=== PATIENT | female | born 1990 | race Caucasian/White ===

== ENCOUNTER 2016-12-12 10:40 | Emergency (ER) | payer BC, OTHER ==
[2016-12-12 11:24] VITALS: BP 118/70
[2016-12-12] MEDS ORDERED: Ibuprofen TAB* 400 MG PO ONE (13:04)
--- NOTE | 2016-12-12 13:08 | UC ---
Throat Pain/Nasal Aurea HPI - History of Current Complaint Chief Complaint: UCRespiratory Stated Complaint: THROAT PAIN Time Seen by Provider: 12/12/16 12:33 Hx Obtained From: Patient Hx Last Menstrual Period: 11/26/16 ?: No Onset/Duration: Gradual Onset - started 4 days a go with ST and nasal aurea. today has fever and feels "awful" Cough: None Associated Signs & Symptoms: Positive: Sinus Discomfort, Fever - Allergies/Home Medications Allergies/Adverse Reactions: Allergies Allergy/AdvReac Type Severity Reaction Status Date / Time No Known Allergies Allergy Verified 11/20/15 18:40 Home Medications: Home Medications Ibuprofen [Advil] 400 mg PO 12/12/16 [History] PMH/Surg Hx/FS Hx/Imm Hx Previously Healthy: Yes - Surgical History Surgical History: Yes Surgery Procedure, Year, and Place: Ganglion cyst removed in September, wisdom teeth extraction - Family History Known Family History: Positive: None - Social History Occupation: Employed Full-time - customer service Lives: With Family Alcohol Use: Rare Substance Use Type: None Smoking Status (MU): Never Smoked Tobacco Review of Systems Constitutional: Fever, Fatigue Skin: Negative ENT: Sore Throat, Sinus Congestion, Other - ear fullness Respiratory: Negative Cardiovascular: Negative Neurological: Negative Psychological: Negative All Other Systems Reviewed And Are Negative: Yes Physical Exam Triage Information Reviewed: Yes Appearance: Well-Appearing, No Pain Distress, Well-Nourished Vital Signs: Initial Vital Signs Temp 100.7 F 12/12/16 11:20 Pulse 120 12/12/16 11:20 Resp 18 12/12/16 11:20 BP 118/70 12/12/16 11:20 Pulse Ox 99 12/12/16 11:20 Vital Signs Reviewed: Yes Eyes: Positive: Conjunctiva Clear ENT: Positive: Pharyngeal erythema, TM dull, Tonsillar swelling, Tonsillar exudate Neck: Positive: Enlarged Nodes @ - bilat ant cervical Respiratory Exam: Normal Cardiovascular Exam: Normal Neurological Exam: Normal Psychological Exam: Normal Skin Exam: Normal Skin: Negative: rashes Throat Pain/Nasal Course/Dx - Differential Dx/Diagnosis Differential Diagnosis/HQI/PQRI: Pharyngitis, Sinusitis, Tonsillitis, URI Provider Diagnoses: sinusitis Discharge - Discharge Plan Condition: Good Disposition: HOME Prescriptions: Amoxicillin/Clavulanate TAB* [Augmentin TAB 875*] 875 mg PO BID #20 tab Patient Education Materials: Sinusitis (ED) Referrals: Lali Benson MD [Primary Care Provider] - 3 Days (if no better) Additional Instructions: drink plenty of fluids start antibiotic as prescribed try sudafed (from behind the counter) for nasal congestion
== END 2016-12-12 14:20 | disposition home or self-care (01) ==
LOC: UCEAST 10:40
DX: J32.9 Chronic sinusitis, unspecified (principal)
CPT/HCPCS: 87651; 99212; A9270-GY; G0463

== ENCOUNTER → 2019-04-27 11:07 | Day surgery (SDC) | payer BC ==
[~2019-04-27 11:07] MED LIST: Acetaminophen IV 1GM/100ML * 100 ML ONE; Buffered Lidocaine 1% SYRIN* 1 ML/SYRINGE INTRADERM ONE; DOXYcycline IV 200 MG in NS 250 mL *Pre-Op OBGYN IVPB ONE; Dexamethasone TAB* 4 MG ONE; Dexamethasone TAB* 4 MG PO ONE; DiMENhydriNATE IV* 50 MG/ML VIAL IV PUSH PRN; Famotidine TAB* 20 MG ONE; Famotidine TAB* 20 MG PO ONE; HYDROmorphone INJ1* 1 MG/ML SYRINGE IV PRN; KETAMINE HCL* 50 MG/ML 10 ML VIAL ONE; Ketorolac INJ* 30 MG/ML 1 ML VIAL ONE; Lactated Ringers 1000 ML Bag* 1,000 ML IV SCH; Lidocaine 1% INJ* 10 MG/ML 30 ML SDV ONE; Lidocaine 2% PF * 5 ML VIAL ONE; Midazolam* 1 MG/ML 5 ML VIAL (5 MG) ONE; Misoprostol TAB* 200 MCG ONE; Naloxone* 0.4 MG/ML 1 ML VIAL IV PRN; Ondansetron ODT TAB* 4 MG ONE; Ondansetron ODT TAB* 4 MG PO ONE; PROCHLORPERAZINE INJ 5 MG/ML 2 ML VIAL IV PRN; PROCHLORPERAZINE INJ 5 MG/ML 2 ML VIAL ONE; Propofol* 10 MG/ML 20 ML BTL ONE; Propofol* 500 MG/50 ML BTL ONE; Scopolamine 1.5 mg* PATCH ONE; Scopolamine 1.5 mg* PATCH TRANSDERM PRN; Scopolamine PATCH Remove* 1 NOTE MISC PATCH OFF ONE; Silver Nitrate/Potassium Nitr* 1 PAK (1 PAK PER PATIENT) ONE; fentaNYL* 50 MCG/ML 2 ML VIAL (100 MCG VIAL) IV PRN; fentaNYL* 50 MCG/ML 2 ML VIAL (100 MCG VIAL) ONE; oxyCODONE TAB* 5 MG TAB PO PRN
[2019-04-27 11:57] LABS: ABS Eosinophils 0.1 10^3/ul (0-0.6); ABS Lymphocytes 1.3 10^3/ul (1.0-4.8); ABS Monocytes 0.4 10^3/ul (0-0.8); ABS Neutrophils 5.6 10^3/ul (1.5-7.7); Eosinophil % 1.3 %; Hematocrit 41 % (35-47); Hemoglobin 14.1 g/dL (12.0-16.0); Lymphocyte % 17.4 %; Mean Corpuscular HGB Conc 34 g/dL (31-36); Mean Corpuscular Hemoglobin 31 pg (27-31); Mean Corpuscular Volume 89 fL (80-97); Mean Platelet Volume 7.9 fL (7.4-10.4); Nucleated Red Blood Cells % 0.2; Platelet Count 268 10^3/uL (150-450); Red Cell Distribution Width 13 % (10-15); White Blood Count 7.5 10^3/uL (3.5-10.8)
[2019-04-27 14:47] VITALS: BP 118/77
--- NOTE | 2019-04-27 20:39 | OP ---
OPERATIVE REPORT: DATE OF OPERATION: 04/27/19 DATE OF : [birth year] SURGEON: Jatinder Abreu DO. ANESTHESIA: General endotracheal. PRE-OP DIAGNOSIS: Missed measuring 9 weeks 2 days gestation. POST-OP DIAGNOSIS: Missed measuring 9 weeks 2 days gestation. OPERATIVE PROCEDURE: Suction D and C. IV FLUIDS: 1100 mL IV fluids administered. ESTIMATED BLOOD LOSS: 10 mL. URINE OUTPUT: Zero. SPECIMEN: Products of conception. COMPLICATIONS: No complications. FINDINGS: A 9-week sized anteverted uterus with closed cervix, moderate amounts of products of conception. CONDITION: Stable to recovery room at end of procedure. INDICATIONS: The risks, benefits, alternatives, and indications of the procedures were discussed with the patient. She voiced an understanding of the procedure and signed the consent. DESCRIPTION OF PROCEDURE: The patient was taken to the OR where general anesthesia was administered without difficulty. She was placed in the dorsal lithotomy position with Yellowfin stirrups. An exam under anesthesia revealed a 9-week sized anteverted uterus with the cervix closed. The patient was prepared and draped in the normal sterile fashion. A weighted speculum was inserted in the posterior aspect of the vagina. A single-tooth tenaculum was used to grasp the anterior lip of the cervix. 5 cc of lidocaine was administered at 4 o'clock and 8 o'clock for paracervical blockade. The uterus was then carefully dilated with Hanks dilators to accommodate a size 8 mm suction curette. The size 8 mm suction curette was advanced to the uterine fundus. The suction was then started. The products of conception were evacuated with the curette rotating on the outward movement. This was performed x3. A gentle sharp curettage was then performed with a medium size curette. The suction curette was then reintroduced and 1 additional passage was performed to clear the uterus. The tenaculum was then removed from the cervix and good hemostasis was noted. The patient tolerated the procedure well. The instrument and sponge counts were correct x2. The patient was awakened from general anesthesia and taken to the recovery room in a stable condition. The patient will go home after recovering from anesthesia and meeting all the criteria for discharge. She was given instructions regarding the followup within 2 weeks with [facility]. I was present for the entire procedure. Braulio Abreu DO OBGYN [id number]/[facility] #: [id number] DEANNAD
== END | disposition home or self-care (01) ==
LOC: OR 11:07
PROVIDERS: ATTEND Obstetrics & Gynecology
DX: O02.1 Missed abortion (principal)
CPT/HCPCS: 36415; 85025; 86850; 86900; 86901; 88305; A9270-GY; J0780; J1885; J2250; J2704; J3010; J8540

== ENCOUNTER 2019-08-31 11:58 | Day surgery (SDC) | payer BC ==
[~2019-08-31 11:58] MED LIST changes: -Acetaminophen IV 1GM/100ML * 100 ML ONE; +Dexamethasone IV* 4 MG/ML 1 ML (4 MG) IV SLOW PU ONE; -Dexamethasone TAB* 4 MG ONE; -Dexamethasone TAB* 4 MG PO ONE; -DiMENhydriNATE IV* 50 MG/ML VIAL IV PUSH PRN; +Famotidine IV* 10 MG/ML 2 ML (20 mg) IV ONE; -Famotidine TAB* 20 MG ONE; -Famotidine TAB* 20 MG PO ONE; -HYDROmorphone INJ1* 1 MG/ML SYRINGE IV PRN; -KETAMINE HCL* 50 MG/ML 10 ML VIAL ONE; -Ketorolac INJ* 30 MG/ML 1 ML VIAL ONE; -Lidocaine 1% INJ* 10 MG/ML 30 ML SDV ONE; -Lidocaine 2% PF * 5 ML VIAL ONE; -Midazolam* 1 MG/ML 5 ML VIAL (5 MG) ONE; -Misoprostol TAB* 200 MCG ONE; -Naloxone* 0.4 MG/ML 1 ML VIAL IV PRN; -Ondansetron ODT TAB* 4 MG ONE; -Ondansetron ODT TAB* 4 MG PO ONE; -PROCHLORPERAZINE INJ 5 MG/ML 2 ML VIAL IV PRN; -PROCHLORPERAZINE INJ 5 MG/ML 2 ML VIAL ONE; -Propofol* 10 MG/ML 20 ML BTL ONE; -Propofol* 500 MG/50 ML BTL ONE; -Scopolamine 1.5 mg* PATCH ONE; -Scopolamine 1.5 mg* PATCH TRANSDERM PRN; -Scopolamine PATCH Remove* 1 NOTE MISC PATCH OFF ONE; -Silver Nitrate/Potassium Nitr* 1 PAK (1 PAK PER PATIENT) ONE; -fentaNYL* 50 MCG/ML 2 ML VIAL (100 MCG VIAL) IV PRN; -fentaNYL* 50 MCG/ML 2 ML VIAL (100 MCG VIAL) ONE; -oxyCODONE TAB* 5 MG TAB PO PRN
[2019-08-31] MEDS ORDERED: Dexamethasone IV* 4 MG/ML 1 ML (4 MG) ONE ×2 (12:12→14:30)
[2019-08-31] MEDS ORDERED: Buffered Lidocaine 1% SYRIN* 1 ML/SYRINGE INTRADERM ONE (12:12)
[2019-08-31] MEDS ORDERED: Famotidine IV* 10 MG/ML 2 ML (20 mg) ONE (12:13)
[2019-08-31 13:16] LABS: ABS Eosinophils 0.1 10^3/ul (0-0.6); ABS Lymphocytes 1.2 10^3/ul (1.0-4.8); ABS Monocytes 0.4 10^3/ul (0-0.8); ABS Neutrophils 5.8 10^3/ul (1.5-7.7); Eosinophil % 1.5 %; Hematocrit 41 % (35-47); Hemoglobin 14.2 g/dL (12.0-16.0); Lymphocyte % 15.5 %; Mean Corpuscular HGB Conc 35 g/dL (31-36); Mean Corpuscular Hemoglobin 31 pg (27-31); Mean Corpuscular Volume 88 fL (80-97); Mean Platelet Volume 8.4 fL (7.4-10.4); Nucleated Red Blood Cells % 0.1; Platelet Count 249 10^3/uL (150-450); Red Blood Count 4.61 10^6 /uL (3.70-4.87); Red Cell Distribution Width 13 % (10-15); White Blood Count 7.5 10^3/uL (3.5-10.8)
[2019-08-31] MEDS ORDERED: Lidocaine 1% INJ* 10 MG/ML 30 ML SDV ONE (14:06)
[2019-08-31] MEDS ORDERED: Scopolamine 1.5 mg* PATCH ONE (14:12)
[2019-08-31] MEDS ORDERED: Midazolam* 1 MG/ML 5 ML VIAL (5 MG) ONE (14:16)
[2019-08-31] MEDS ORDERED: fentaNYL* 50 MCG/ML 2 ML VIAL (100 MCG VIAL) ONE (14:23)
[2019-08-31] MEDS ORDERED: Propofol* 10 MG/ML 20 ML BTL ONE (14:30)
[2019-08-31] MEDS ORDERED: Ketorolac INJ* 30 MG/ML 1 ML VIAL ONE (14:30)
[2019-08-31] MEDS ORDERED: Ondansetron INJ* 2 MG/ML VIAL ONE (14:30)
[2019-08-31] MEDS ORDERED: DiMENhydriNATE IV* 50 MG/ML VIAL ONE (14:30)
[2019-08-31] MEDS ORDERED: Lidocaine 2% PF * 5 ML VIAL ONE (14:30)
[2019-08-31] MEDS ORDERED: OXYTOCIN* 10 UNITS/ML 1 ML VIAL ONE (14:38)
[2019-08-31 16:55] VITALS: BP 109/66
--- NOTE | 2019-08-31 18:05 | OP ---
AMENDED REPORT NOW INCLUDES DATE OF OPERATION - ESIGNED BEFORE ADJUSTMENT * DATE OF OPERATION: 08/31/19 DATE OF : [birth year] SURGEON: Dr. Downing. ANESTHESIA: Local MAC. PRE-OP DIAGNOSIS: Missed . POST-OP DIAGNOSIS: Missed . OPERATIVE PROCEDURE: D and C. COMPLICATIONS: None. FINDINGS: On exam under anesthesia, the uterus was 8-week size in mid position. Cervix, vagina, and vulva appeared normal. DESCRIPTION OF PROCEDURE: The patient identified, procedure identified as a D and C. The patient was taken to the operating room, prepped and draped in the usual fashion in dorsal lithotomy position under sedation. A paracervical block of 15 cc of 1% lidocaine was injected at the 12, 4, and 8 o'clock positions. The cervix was easily dilated up to a #29 Clemons dilator. The sharp curette was inserted and sharp curettage performed until a little bit of fluid was obtained. The #8 suction curette was inserted and suction curettage performed with moderate to small amounts of tissue obtained. The sharp curette was reinserted and again scant amounts of tissue were obtained and more was obtained using the suction curette. The polyp forceps were inserted, no further tissue was obtained. The suction was reinserted and no further tissue was obtained. Good hemostasis was verified. All sponge and instrument counts were correct. The patient returned to the recovery room in stable condition. [id number]/[facility] #: [id number] MTDD
== END 2019-08-31 16:59 | disposition home or self-care (01) ==
LOC: OR 11:58
PROVIDERS: ATTEND Obstetrics & Gynecology
DX: O02.1 Missed abortion (principal)
CPT/HCPCS: 36415; 81229; 85025; 86850; 86900; 86901; 88305; A9270-GY; J1100; J1240; J1885; J2250; J2405; J2590; J2704; J3010

== ENCOUNTER 2020-11-06 15:10 | Inpatient (IN) ==
[2020-11-06] MEDS ORDERED: Buffered Lidocaine 1% SYRIN 1 ml INTRADERM ONE (16:28)
[2020-11-06] MEDS ORDERED: Dinoprostone 10 MG VAG.SUPP VAGINAL ONE (16:28)
[2020-11-06] MEDS ORDERED: Lactated Ringers 1000 ml BAG 1,000 ML IV ONE (16:28)
[2020-11-06 18:04] LABS: Urine Benzodiazepine Screen None Detected (None Detect); Urine Cannabinoids Screen None Detected (None Detect); Urine Opiates Screen None Detected (None Detect)
[2020-11-06] MEDS ORDERED: Calcium Carb (TUMS) 500 mg CHEW TAB ONE (23:39)
[2020-11-07 12:32] LABS: Hematocrit 34 % (35-47); Hemoglobin 11.4 g/dL (12.0-16.0); Mean Corpuscular HGB Conc 33 g/dL (31-36); Mean Corpuscular Hemoglobin 30 pg (27-31); Mean Corpuscular Volume 89 fL (80-97); Mean Platelet Volume 8.6 fL (7.4-10.4); Platelet Count 400 10^3/uL (150-450); Red Blood Count 3.86 10^6 /uL (3.70-4.87); Red Cell Distribution Width 14 % (10-15); White Blood Count 12.9 10^3/uL (3.5-10.8)
[2020-11-07] MEDS ORDERED: Oxytocin in LR 20 UNITS/1,000 ML BAG IVPB ONE (13:26)
[2020-11-07] MEDS: Oxytocin in LR 20 UNITS/1,000 ML BAG IVPB SCH (13:35)
[2020-11-07] MEDS: Lactated Ringers 1000 ml BAG 1,000 ML IV SCH (14:00)
[2020-11-07] MEDS: Lidocaine 2% JELLY 6 ML TOPICAL PRN (19:47)
[2020-11-07] MEDS ORDERED: Dinoprostone 10 MG VAG.SUPP VAGINAL ONE (20:06)
[2020-11-08] MEDS: Lidocaine 2% JELLY 6 ML TOPICAL PRN (10:25)
[2020-11-08] MEDS ORDERED: Buffered Lidocaine 1% SYRIN 1 ml INTRADERM ONE (10:44)
[2020-11-08] MEDS: Oxytocin in LR 20 UNITS/1,000 ML BAG IVPB SCH ×2 (10:54→22:01)
[2020-11-08] MEDS: Lactated Ringers 1000 ml BAG 1,000 ML IV SCH (18:59)
[2020-11-08] MEDS: Calcium Carb (TUMS) 500 mg CHEW TAB PO PRN (22:21)
[2020-11-09] MEDS ORDERED: OBEPIDURAL 250 ML EPIDURAL ONE (00:41)
[2020-11-09] MEDS ORDERED: Bupivacaine 0.25% SDV PF 10 ML VIAL INJ ONE (01:12)
[2020-11-09] MEDS: Calcium Carb (TUMS) 500 mg CHEW TAB PO PRN ×2 (02:00→06:15)
[2020-11-09] MEDS ORDERED: Sodium Citrate/Citric Acid LIQ 15 ML UDC PO PRN (02:18)
[2020-11-09] MEDS ORDERED: EPHEDrine (Pressors) 50 MG/ML VIAL IV PUSH PRN ×2 (02:18)
[2020-11-09] MEDS ORDERED: Lactated Ringers 1000 ml BAG 1,000 ML IV ONE (02:18)
[2020-11-09] MEDS ORDERED: Phenylephrine 40 mcg/mL 10mL (400mcg) SYRINGE IV PUSH PRN ×2 (02:18)
[2020-11-09 02:38] LABS: Urine Appearance Clear; Urine Bilirubin Negative (Negative); Urine Blood 1+ (Negative); Urine Color Straw; Urine Glucose Negative (Negative); Urine Ketones Negative (Negative); Urine Nitrite Negative (Negative); Urine Protein Negative (Negative); Urine Specific Gravity 1.005 (1.002-1.030); Urine Urobilinogen Negative (Negative)
[2020-11-09 02:40] LABS: Urine Bacteria Absent (Absent); Urine Red Blood Cell Trace(0-2/hpf) (Absent); Urine Squamous Epithelial Cell Present (Absent); Urine White Blood Cell Trace(0-5/hpf) (Absent)
[2020-11-09] MEDS ORDERED: Lactated Ringers 1000 ml BAG 1,000 ML IV SCH ×2 (03:00→09:00)
[2020-11-09] MEDS ORDERED: Dibucaine 1% OINT 28.35 GM TUBE PR PRN (08:46)
[2020-11-09] MEDS ORDERED: Witch Hazel PAD JAR TOPICAL PRN (08:46)
[2020-11-09] MEDS ORDERED: Oxytocin in LR 20 UNITS/1,000 ML BAG IVPB SCH (09:00)
[2020-11-09] MEDS ORDERED: Lidocaine 1% VIAL 10 MG/ML VIAL ONE (09:19)
[2020-11-10 06:06] LABS: ABS Eosinophils 0.2 10^3/ul (0-0.6); ABS Lymphocytes 1.6 10^3/ul (1.0-4.8); ABS Monocytes 1.1 10^3/ul (0-0.8); ABS Neutrophils 14.9 10^3/ul (1.5-7.7); Eosinophil % 1.3 %; Hematocrit 28 % (35-47); Hemoglobin 9.3 g/dL (12.0-16.0); Lymphocyte % 9.1 %; Mean Corpuscular HGB Conc 34 g/dL (31-36); Mean Corpuscular Hemoglobin 30 pg (27-31); Mean Corpuscular Volume 89 fL (80-97); Mean Platelet Volume 8.8 fL (7.4-10.4); Platelet Count 324 10^3/uL (150-450); Red Blood Count 3.09 10^6 /uL (3.70-4.87); Red Cell Distribution Width 14 % (10-15); White Blood Count 17.8 10^3/uL (3.5-10.8)
[2020-11-10] MEDS: OBEPIDURAL 250 ML EPIDURAL SCH (07:29)
[2020-11-10 07:54] VITALS: BP 117/70
== END 2020-11-10 14:26 | disposition home or self-care (01) | DRG 560 ==
LOC: MCHOBOUT 15:10 → MCHOB 16:27
PROVIDERS: ADMIT Midwife; ATTEND Midwife